=== PATIENT | female | born 1985 ===

== ENCOUNTER 2023-06-25 07:45 | Inpatient (IN) | payer OTHER ==
[~2023-06-25] VITALS: Ht 165.1 cm; Wt 77.1 kg
[2023-07-12] MEDS ORDERED: OBSTETRIX ONE CAPSUL PO (08:41)
[2023-07-12 08:46] LABS: HEMATOCRIT 32.6 % (36.0-45.00); HEMOGLOBIN 11.3 g/dL (12.0-15.00); MEAN CELL VOLUME 91.9 fL (80.00-100.00); MEAN CORPUSCULAR HEMOGLOBIN 31.9 pg (27.00-32.0); MEAN CORPUSCULAR HGB CONC 34.7 g/dl (32.0-36.0); PLATELET COUNT 215 K/uL (150-450); RED BLOOD COUNT 3.55 M/uL (4.00-6.00); RED CELL DISTRIBUTION WIDTH 14.1 % (11.5-14.5)
[2023-07-12 09:06] LABS: INR 0.98; PARTIAL THROMBOPLASTIN TIME 26.5 SECONDS (22.0-34.0); PROTHROMBIN TIME 10.3 SECONDS (9.0-11.5)
[2023-07-12 09:40] LABS: ALBUMIN 3.1 gm/dL (3.4-5.0); BILIRUBIN TOTAL 0.21 mg/dL (0.3-1.2); CALCIUM 8.9 mg/dL (8.5-10.1); CREATININE SERUM 0.48 mg/dL (0.55-1.02); GFR 144.74; POTASSIUM 4.51 mEq/L (3.5-5.1); TOTAL PROTEIN 6.1 gm/dL (6.4-8.2)
[2023-07-12] MEDS ORDERED: FAMOTIDINE20 MG (11:46)
[2023-07-12 19:03] LABS: ABG PH 7.316 (7.35-7.45); ABG pCO2 40.7 mmHg (35-45); BASE EXCESS -5.5 mmol/l; BICARBONATE 20.3 mmol/l (23-25); Tco2 21.6 mmol/l; o2 21 %
== END 2023-07-14 13:57 | disposition home or self-care (01) | DRG 807 ==
LOC: OB/GYN 07-12 07:15 → LDR 07-12 07:15 → OB/GYN 07-12 07:45
PROVIDERS: ADMIT Obstetrics & Gynecology Maternal & Fetal Medicine; ATTEND Obstetrics & Gynecology Maternal & Fetal Medicine
PROC: 10E0XZZ Delivery of Products of Conception, External Approach (ICD-10-PCS; principal; 2023-07-12)
PROC: 0KQM0ZZ Repair Perineum Muscle, Open Approach (ICD-10-PCS; 2023-07-12)
PROC: 0W8NXZZ Division of Female Perineum, External Approach (ICD-10-PCS; 2023-07-12)
PROC: 4A1HXCZ Monitoring of Products of Conception, Cardiac Rate, External Approach (ICD-10-PCS; 2023-07-12)
DX: O70.1 Second degree perineal laceration during delivery (principal); Z37.0 Single live birth; Z3A.40 40 weeks gestation of pregnancy; Z20.822 Contact with and (suspected) exposure to COVID-19

== ENCOUNTER 2023-07-06 11:14 | Outpatient (CLI) | payer OTHER | END 2023-07-06 11:38 | disposition home or self-care (01) | LOC: NST 11:14 | PROVIDERS: ATTEND Obstetrics & Gynecology | DX: Z34.83 Encounter for supervision of other normal pregnancy, third trimester (principal) ==